=== PATIENT | female | born 1980 | race Caucasian/White ===

== ENCOUNTER 2018-06-05 09:57 | Emergency (ER) | payer BC ==
[~2018-06-05] VITALS: Ht 165.1 cm; Wt 70.3 kg
[2018-06-05 11:05] LABS: BASOPHIL % 0.3 % (0-2); PLATELET COUNT 216 x10^3mcL (130-400); RED CELL DISTRIBUTION WIDTH 14.4 % (11.5-14.5)
[2018-06-05 11:09] LABS: CARBON DIOXIDE 24.9 mmol/L (21-32); CHLORIDE SERUM 100 mmol/L (98-107); CREATININE SERUM 0.8 mg/dL (0.6-1.0); GFR1 > 60 mL/min; GLUCOSE SERUM 78 mg/dL (74-106); POTASSIUM SERUM 3.8 mmol/L (3.5-5.1); SODIUM SERUM 139 mmol/L (136-145)
[2018-06-05 11:19] LABS: CALCIUM 9.8 mg/dL (8.5-10.1)
[2018-06-05 11:42] VITALS: BP 105/66
== END 2018-06-05 11:43 | disposition home or self-care (01) ==
LOC: ED 09:57
PROVIDERS: Emergency Medicine
DX: O99.611 Diseases of the digestive system complicating pregnancy, first trimester (principal); K92.9 Disease of digestive system, unspecified; Z3A.13 13 weeks gestation of pregnancy
CPT/HCPCS: J7030; J8597